=== PATIENT | female | born 1995 | race Caucasian/White ===

== ENCOUNTER 2016-11-05 00:42 | Emergency (ER) | payer OTHER ==
[~2016-11-05] VITALS: Ht 162.6 cm; Wt 50.0 kg
[2016-11-05 00:55] VITALS: BP 108/63; PULSE 69; RESP 16; TEMP 98.7; O2SAT 99
[2016-11-05 01:20] LABS: AUTOMATED NEUTROPHIL # 6.8 TH/MM3 (1.8-7.7); BASOPHIL % 0.3 % (0.0-2.0); EOSINOPHIL # 0.1 TH/MM3 (0-0.4); EOSINOPHIL % 0.6 % (0.0-4.0); HEMATOCRIT 39.5 % (35.0-46.0); HEMO FLAGS DIFF FINAL; LYMPH % 22.5 % (9.0-44.0); LYMPHOCYTE # 2.2 TH/MM3 (1.0-4.8); MEAN CELL VOLUME 89.7 FL (80.0-100.0); MEAN CORPUSCULAR HEMOGLOBIN 31.7 PG (27.0-34.0); MEAN CORPUSCULAR HGB CONC 35.3 % (32.0-36.0); MONO % 5.8 % (0.0-8.0); NEUT % 70.8 % (16.0-70.0); PLATELET COUNT 213 TH/MM3 (150-450); RED BLOOD COUNT 4.41 MIL/MM3 (4.00-5.30); RED CELL DISTRIBUTION WIDTH 13.3 % (11.6-17.2); WHITE BLOOD COUNT 9.7 TH/MM3 (4.0-11.0)
[2016-11-05 01:36] LABS: AMPHETAMINE, URINE NEG (NEG); BARBITURATES, URINE NEG (NEG); COCAINE, URINE NEG (NEG)
--- NOTE | 2016-11-05 01:47 | PD ---
HPI Chief Complaint: Psychiatric Symptoms Time Seen by Provider: 01:47 Travel History International Travel<30 days: No Contact w/Intl Traveler<30days: No Traveled to known affect area: No History of Present Illness HPI 21-year-old female who states she is 5 weeks , presents to emergency department under Hemphill act for psychiatric evaluation. Patient states that she got into an argument with her family. She states that she went for a walk to cool off and her family thought she was going to hurt herself so they contacted police. Patient states that she has said things out of anger. She states that her family has "pushed her to the edge" and they "don't care." Patient denies suicidal or homicidal ideations. Denies any psychiatric or medical history. She has no other symptoms to report at this time. [facility] Past Medical History Medical History: Denies Significant Hx ?: LMP: 09-18-2016 Past Surgical History Surgical History: No Previous Surgery Social History Alcohol Use: No Tobacco Use: No Substance Use: Yes (MARIJUANA ) Allergies-Medications (Allergen,Severity, Reaction): Coded Allergies: No Known Allergies (Unverified , 11/05/16) Reported Meds & Prescriptions Reported Meds & Active Scripts Active No Active Prescriptions or Reported Medications Review of Systems Except as stated in HPI: all other systems reviewed are Neg Physical Exam Narrative GENERAL: Well-nourished female patient, in no acute distress SKIN: Focused skin assessment warm/dry. HEAD: Atraumatic. Normocephalic. EYES: Pupils equal and round. No scleral icterus. No injection or drainage. ENT: No nasal bleeding or discharge. Mucous membranes pink and moist. NECK: Trachea midline. No JVD. CARDIOVASCULAR: Regular rate and rhythm. No murmur appreciated. RESPIRATORY: No accessory muscle use. Clear to auscultation. Breath sounds equal bilaterally. GASTROINTESTINAL: Abdomen soft, non-tender, nondistended. Hepatic and splenic margins not palpable. MUSCULOSKELETAL: No obvious deformities. No clubbing. No cyanosis. No edema. NEUROLOGICAL: Awake and alert. No obvious cranial nerve deficits. Motor grossly within normal limits. Normal speech. Data Data Last Documented VS Vital Signs Date Time Temp Pulse Resp B/P Pulse Ox O2 Delivery O2 Flow Rate FiO2 11/05/16 00:55 98.7 69 16 108/63 99 Orders Complete Blood Count With Diff (11/05/16 00:52) Basic Metabolic Panel (Bmp) (11/05/16 00:52) Ed Urine Pregnancytest Poc (11/05/16 00:52) Psych Screen (11/05/16 00:52) Drug Screen, Random Urine (11/05/16 00:52) Alcohol (Ethanol) (11/05/16 00:52) Labs Laboratory Tests Test 11/05/16 01:06 White Blood Count 9.7 TH/MM3 Red Blood Count 4.41 MIL/MM3 Hemoglobin 14.0 GM/DL Hematocrit 39.5 % Mean Corpuscular Volume 89.7 FL Mean Corpuscular Hemoglobin 31.7 PG Mean Corpuscular Hemoglobin 35.3 % Concent Red Cell Distribution Width 13.3 % Platelet Count 213 TH/MM3 Mean Platelet Volume 9.0 FL Neutrophils (%) (Auto) 70.8 % Lymphocytes (%) (Auto) 22.5 % Monocytes (%) (Auto) 5.8 % Eosinophils (%) (Auto) 0.6 % Basophils (%) (Auto) 0.3 % Neutrophils # (Auto) 6.8 TH/MM3 Lymphocytes # (Auto) 2.2 TH/MM3 Monocytes # (Auto) 0.6 TH/MM3 Eosinophils # (Auto) 0.1 TH/MM3 Basophils # (Auto) 0.0 TH/MM3 CBC Comment DIFF FINAL Differential Comment Sodium Level 137 MEQ/L Potassium Level 3.3 MEQ/L Chloride Level 103 MEQ/L Carbon Dioxide Level 27.3 MEQ/L Anion Gap 7 MEQ/L Blood Urea Nitrogen 4 MG/DL Creatinine 0.66 MG/DL Estimat Glomerular Filtration 114 ML/MIN Rate Random Glucose 98 MG/DL Calcium Level 9.1 MG/DL Urine Opiates Screen NEG Urine Barbiturates Screen NEG Urine Amphetamines Screen NEG Urine Benzodiazepines Screen NEG Urine Cocaine Screen NEG Urine Cannabinoids Screen POS Ethyl Alcohol Level LESS THAN 3 MG/DL MDM Medical Decision Making Medical Screen Exam Complete: Yes Emergency Medical Condition: Yes Medical Record Reviewed: Yes Differential Diagnosis Mood disorder versus personality disorder versus adjustment reaction disorder Narrative Course 21 year-old female presents to the emergency department under Hemphill act for psychiatric evaluation. Urine test is positive and patient states that she recently found out she was . Her vital signs are stable. Lab work is without acute concern. She does have a mild hypokalemia. Toxicology is positive for cannabinoids. Patient will be medically cleared to undergo psychiatric screening for further evaluation and disposition. Mental health screening discussed with the patient. Psychiatric screen ordered. Diagnosis Primary Impression: Adjustment disorder Qualified Code: F43.21 - Adjustment disorder with depressed mood Additional Impression: Qualified Code: Z3A.01 - Less than 8 weeks gestation of Scripts No Active Prescriptions or Reported Meds Condition: Lilly Guajardo November 05, 2016 01:47
[2016-11-05 01:55] LABS: ANION GAP 7 MEQ/L (5-15); BICARBONATE 27.3 MEQ/L (21.0-32.0); BLOOD UREA NITROGEN 4 MG/DL (7-18); CHLORIDE 103 MEQ/L (98-107); GLOMERULAR FILTRATION RATE 114 ML/MIN (>89); POTASSIUM 3.3 MEQ/L (3.5-5.1); SODIUM (NA) 137 MEQ/L (136-145)
[2016-11-05 08:23] VITALS: BP 110/64; PULSE 72; RESP 16; TEMP 98.2; O2SAT 100
[2016-11-05 11:45] VITALS: BP 121/71; PULSE 82; RESP 18; TEMP 98.3; O2SAT 100
--- NOTE | 2016-11-05 15:34 | PD ---
History of Present Illness Chief Complaint: Psychiatric Symptoms Time Seen by Provider: 15:00 Travel History International Travel<30 Days: No Contact w/Intl Traveler<30days: No Known affected area: No Legal Status Legal Status: Hemphill Act Hemphill Act Signed By: Francisca Monique History of Present Illness: History of Present Illness HPI 21-year-old female with no previous psychiatric history presents to emergency department under Hemphill act initiated by [facility] for psychiatric evaluation. The report alleges that she had been making statements about killing herself. Patient states that she got into an argument with her family and that she said things out of anger but that she did not mean. . She states that she went for a walk to cool off and her family thought she was going to hurt herself so they contacted police. EMR is reviewed. No previous contact with [facility] psychiatry dept. Patient has been monitored in J pod with no behavioral concerns. She is alert, oriented, engaging and calm. Appears stated age. Dressed in hospital [facility], maintaining basic hygiene. Speech is clear and logical. There is no indication that she has any psychosis and no kev. Patient is upset with her family but is not exhibiting any symptoms of depression. She denies any suicidal ideation, intent or plan. Has never made any attempts at harming herself. Multiple family stressors reported. Sleeping well, good appetite and able to meet her responsibilities. [facility] Past Medical History Medical History: Denies Significant Hx ?: LMP: 09-18-2016 Past Surgical History Surgical History: No Previous Surgery Psychiatric History Psychiatric History Hx Psychiatric Treatment: Pt denied History of Inpatient Treatment: No Guns or firearms in home: No Social History Single female. Has one 5 year old son. Lives with her parents. Unemployed. Hx Alcohol Use: No Hx Tobacco Use: No Hx Substance Use: No Substance Use Type: Cough-Cold Pills Other Substances Used: Pt denied Hx of Substance Use Treatment: No Family Psychiatric History Negative Allergies-Medications (Allergen,Severity, Reaction): Coded Allergies: No Known Allergies (Unverified , 11/05/16) Reported Meds & Prescriptions Reported Meds & Active Scripts Active No Active Prescriptions or Reported Medications Review of Systems Except as stated in HPI: all other systems reviewed are Neg Exam Alert: Yes [place]: Person (ox4) Mood: Calm Affect: Appropriate Speech: Clear, Logical Eye Contact: Normal Memory Intact: Comment (not impaired) Hallucinations: Other (neagtive) Delusions: No Suicidal: Ideation (deneis any) Homicidal: Ideation (deneis) Insight/Judgement Fair . Not impaired. MDM Medical Decision Making Medical Record Reviewed: Yes Assessment/Plan 21 fatou old female with no previous psychiatric history. Does not meet criteria for BA or for psychiatric treatment at this time. Does not present risk to self or others. Orders Complete Blood Count With Diff (11/05/16 00:52) Basic Metabolic Panel (Bmp) (11/05/16 00:52) Ed Urine Pregnancytest Poc (11/05/16 00:52) Psych Screen (11/05/16 00:52) Drug Screen, Random Urine (11/05/16 00:52) Alcohol (Ethanol) (11/05/16 00:52) Diet Regular Basic (11/05/16 Breakfast) Results Vital Signs Date Time Temp Pulse Resp B/P Pulse Ox O2 Delivery O2 Flow Rate FiO2 11/05/16 11:45 98.3 82 18 121/71 100 Room Air 11/05/16 08:23 98.2 72 16 110/64 100 Room Air 11/05/16 00:55 98.7 69 16 108/63 99 Laboratory Tests Test 11/05/16 01:06 White Blood Count 9.7 Red Blood Count 4.41 Hemoglobin 14.0 Hematocrit 39.5 Mean Corpuscular Volume 89.7 Mean Corpuscular Hemoglobin 31.7 Mean Corpuscular Hemoglobin 35.3 Concent Red Cell Distribution Width 13.3 Platelet Count 213 Mean Platelet Volume 9.0 Neutrophils (%) (Auto) 70.8 Lymphocytes (%) (Auto) 22.5 Monocytes (%) (Auto) 5.8 Eosinophils (%) (Auto) 0.6 Basophils (%) (Auto) 0.3 Neutrophils # (Auto) 6.8 Lymphocytes # (Auto) 2.2 Monocytes # (Auto) 0.6 Eosinophils # (Auto) 0.1 Basophils # (Auto) 0.0 CBC Comment DIFF FINAL Differential Comment Sodium Level 137 Potassium Level 3.3 Chloride Level 103 Carbon Dioxide Level 27.3 Anion Gap 7 Blood Urea Nitrogen 4 Creatinine 0.66 Estimat Glomerular Filtration 114 Rate Random Glucose 98 Calcium Level 9.1 Urine Opiates Screen NEG Urine Barbiturates Screen NEG Urine Amphetamines Screen NEG Urine Benzodiazepines Screen NEG Urine Cocaine Screen NEG Urine Cannabinoids Screen POS Ethyl Alcohol Level LESS THAN 3 Diagnosis Primary Impression: Adjustment disorder Additional Impression: Psychiatrically Cleared: Yes Referrals: [facility] (Out patient) call for appointment Departure Forms: Tests/Procedures Patient Instructions: General Instructions, Stress (ED) Med/ Other Pt Specific Info: No Meds Exist/No RX given Prescriptions No Active Prescriptions or Reported Meds Disposition: 01 DISCHARGE HOME Condition: Stable Problem Qualifiers Primary Impression: Adjustment disorder Qualified Code: F43.22 - Adjustment disorder with anxious mood Additional Impression: Qualified Code: Z3A.01 - Less than 8 weeks gestation of Su Judge November 05, 2016 15:34
== END 2016-11-05 16:02 | disposition home or self-care (01) ==
LOC: NEPD 00:42 → NEPJ 16:02
DX: F43.20 Adjustment disorder, unspecified (principal); F12.90 Cannabis use, unspecified, uncomplicated; Z3A.01 Less than 8 weeks gestation of pregnancy
CPT/HCPCS: 80048; 80307; 84703; 85025; 99284